=== PATIENT | male | born 1970 | race Caucasian/White ===

== ENCOUNTER → 2024-11-21 09:38 | Outpatient (REF) | payer BC, SELFPAY | LOC: HWRAD 09:38 | PROVIDERS: ATTENDING PHYSICIAN Internal Medicine Endocrinology, Diabetes & Metabolism; FAMILY PHYSICIAN Physician Assistant Medical | DX: R79.89 Other specified abnormal findings of blood chemistry (principal) | CPT/HCPCS: 76536 ==

== ENCOUNTER → 2025-02-08 09:55 | Outpatient (REF) | payer BC, SELFPAY ==
[2025-02-08 10:45] VITALS: BP 132/88; BP_SYST 77
== END ==
LOC: RADI 09:55
PROVIDERS: ATTENDING PHYSICIAN Internal Medicine Endocrinology, Diabetes & Metabolism; FAMILY PHYSICIAN Physician Assistant Medical
DX: E04.1 Nontoxic single thyroid nodule (principal)
CPT/HCPCS: 10005; 88173